=== PATIENT | male | born 1950 | race Caucasian/White ===

== ENCOUNTER 2016-04-11 11:38 | Outpatient (CLI) | payer MEDICARE, OTHER ==
[2014-11-08 15:53] VITALS: BP 142/72
[2016-04-11 12:41] LABS: eGFR (African) 49; eGFR (Non-African) 40
== END 2016-04-11 11:40 ==
LOC: LAB 11:38
PROVIDERS: ATTEND Internal Medicine Cardiovascular Disease
DX: I50.22 Chronic systolic (congestive) heart failure (principal)
CPT/HCPCS: 36415; 80048

== ENCOUNTER 2016-04-23 08:59 | Outpatient (CLI) | payer MEDICARE, OTHER ==
[~2016-04-23 08:59] MED LIST: 0.9 % SODIUM CHLORIDE 100 ML IV.SOLN IV ONE; FUROSEMIDE 40 MG/4 ML VIAL ONE
[2016-04-23] MEDS ORDERED: 0.9 % SODIUM CHLORIDE 250 ML IV.SOLN IV ONE ×2 (09:00)
[2016-04-23] MEDS ORDERED: 0.9 % SODIUM CHLORIDE 100 ML IV SCH (09:00)
[2016-04-23] MEDS ORDERED: FUROSEMIDE 40 MG/4 ML VIAL IVP ONE (09:00)
[2016-04-23 12:19] VITALS: BP 114/78
== END 2016-04-23 11:00 ==
LOC: INF 08:59
PROVIDERS: ATTEND Internal Medicine Cardiovascular Disease
DX: I50.43 Acute on chronic combined systolic (congestive) and diastolic (congestive) heart failure (principal)
CPT/HCPCS: 96365; 96366; J1940; S1016

== ENCOUNTER 2016-05-24 10:19 | Outpatient (CLI) | payer MEDICARE, OTHER ==
[2016-05-24 12:16] LABS: eGFR (African) > 60; eGFR (Non-African) 54
== END 2016-05-24 10:20 ==
LOC: LABRHC 10:19
PROVIDERS: ATTEND Family Medicine
DX: R60.0 Localized edema (principal)
CPT/HCPCS: 80048; 83036

== ENCOUNTER 2016-10-22 10:26 | Outpatient (CLI) | payer MEDICARE, OTHER ==
[2016-10-22 11:07] LABS: eGFR (African) > 60; eGFR (Non-African) > 60
== END 2016-10-22 10:30 ==
LOC: LAB 10:26
PROVIDERS: ATTEND Family Medicine
DX: E11.9 Type 2 diabetes mellitus without complications (principal)
CPT/HCPCS: 36415; 80048; 83036; 85610

== ENCOUNTER 2017-01-08 11:13 | Outpatient (CLI) | payer MEDICARE, OTHER | END 2017-01-08 11:14 | LOC: LAB 11:13 | PROVIDERS: ATTEND Internal Medicine Cardiovascular Disease | DX: Z79.01 Long term (current) use of anticoagulants (principal) | CPT/HCPCS: 36415; 85610 ==

== ENCOUNTER 2017-05-29 16:48 | Outpatient (CLI) | payer MEDICARE, OTHER | END 2017-05-29 16:50 | LOC: LABRHC 16:48 | PROVIDERS: ATTEND Family Medicine | DX: E11.9 Type 2 diabetes mellitus without complications (principal); E03.9 Hypothyroidism, unspecified | CPT/HCPCS: 83036; 84443 ==

== ENCOUNTER 2017-08-27 15:31 | Outpatient (CLI) | payer MEDICARE, OTHER ==
[2017-08-27 15:40] LABS: MEAN CORPUSCULAR HEMOGLOBIN 32.2 pg (28.0-34.0); MEAN CORPUSCULAR VOLUME 92.9 fl (80.0-100.0)
== END 2017-08-27 15:32 ==
LOC: LABRHC 15:31
PROVIDERS: ATTEND Family Medicine
DX: E11.9 Type 2 diabetes mellitus without complications (principal); D64.9 Anemia, unspecified
CPT/HCPCS: 83036; 85027

== ENCOUNTER 2017-10-04 15:36 | Outpatient (CLI) | payer MEDICARE, OTHER ==
[2017-10-04 16:03] LABS: BASOPHILS % 0.6 (0.0-1.5); EOSINOPHILS % 1.9 % (0.0-6.8); MEAN CORPUSCULAR HEMOGLOBIN 32.8 pg (28.0-34.0); MEAN CORPUSCULAR VOLUME 98.3 fl (80.0-100.0); MONOCYTES % 6.4 % (0.0-11.0); NEUTROPHILS # 3.8 # k/uL (1.4-7.7)
[2017-10-04 16:12] LABS: eGFR (African) > 60; eGFR (Non-African) 54
== END 2017-10-04 15:38 ==
LOC: LAB 15:36
PROVIDERS: ATTEND Internal Medicine Cardiovascular Disease
DX: I42.8 Other cardiomyopathies (principal)
CPT/HCPCS: 36415; 80053; 83880; 85025; 85651

== ENCOUNTER 2019-02-11 14:46 | Outpatient (CLI) | payer MEDICARE, OTHER ==
[2018-08-05 10:35] VITALS: BP 161/111
== END 2019-02-11 14:51 ==
LOC: LABRHC 14:46
PROVIDERS: ATTEND Family Medicine
DX: E11.9 Type 2 diabetes mellitus without complications (principal)
CPT/HCPCS: 83036